=== PATIENT | female | born 1980 | race Caucasian/White ===

== ENCOUNTER → 2024-05-24 16:28 | Outpatient (REF) | payer OTHER, SELFPAY | LOC: RAD 16:28 | PROVIDERS: ATTENDING PHYSICIAN Hospitalist; FAMILY PHYSICIAN Internal Medicine | DX: M25.531 Pain in right wrist (principal); M25.511 Pain in right shoulder; Z12.31 Encounter for screening mammogram for malignant neoplasm of breast | CPT/HCPCS: 73030; 73100 ==

== ENCOUNTER → 2024-06-01 09:27 | Outpatient (REF) | payer OTHER, SELFPAY | LOC: RAD 09:27 | PROVIDERS: ATTENDING PHYSICIAN Nurse Practitioner; REFERRING PHYSICIAN Internal Medicine | DX: R60.0 Localized edema (principal); M71.21 Synovial cyst of popliteal space [Baker], right knee | CPT/HCPCS: 93922; 93970 ==

== ENCOUNTER → 2024-06-17 14:52 | Outpatient (REF) | payer OTHER, SELFPAY | LOC: WDC 14:52 | PROVIDERS: ATTENDING PHYSICIAN Hospitalist | DX: Z12.31 Encounter for screening mammogram for malignant neoplasm of breast (principal) | CPT/HCPCS: 77063; 77067 ==

== ENCOUNTER → 2025-01-06 14:49 | Outpatient (REF) | payer OTHER, SELFPAY | LOC: RAD 14:49 | PROVIDERS: ATTENDING PHYSICIAN Obstetrics & Gynecology Gynecology; FAMILY PHYSICIAN Internal Medicine | DX: N93.9 Abnormal uterine and vaginal bleeding, unspecified (principal) | CPT/HCPCS: 76830; 76856 ==